=== PATIENT | female | born 1990 | race Two or more races ===

== ENCOUNTER 2024-01-31 12:31 | Emergency (ER) | payer MEDICAID ==
[~2024-01-31] VITALS: Ht 157.5 cm; Wt 91.0 kg
[2024-01-31 13:01] VITALS: O2SAT 100
[2024-01-31] MEDS ORDERED: ASPI-740 PO (14:16)
[2024-01-31 14:33] VITALS: BP 115/77; PULSE 80; RESP 18; TEMP 36.66960; O2SAT 100
== END 2024-01-31 14:39 | disposition home or self-care (01) ==
LOC: ER 12:31
DX: R51.9 Headache, unspecified (principal)
CPT/HCPCS: 99282